=== PATIENT | male | born 1990 | race Caucasian/White ===

== ENCOUNTER 2024-10-04 11:09 | Inpatient (IN) | payer OTHER, SELFPAY ==
[~2024-10-04 11:09] MED LIST: Iopamidol 300 61% 100 ML VIAL FS ONE
[2024-10-04] MEDS ORDERED: Ondansetron PF 4 MG/2 ML Vial ONE (12:10)
[2024-10-04 12:18] LABS: #Basophils Less than 0.03 10x3/uL (0.0-0.2); #Eosinophils Less than 0.03 10x3/uL (0.0-0.5); #Monocytes 0.90 10x3/uL (0.0-1.1); #Neutrophils 9.88 10x3/uL (1.5-8.4); %Basophils 0.1 % (0.0-2.0); %Eosinophils 0.0 % (0.0-6.0); %Lymphocytes 4.2 % (18.0-47.0); %Monocytes 8.0 % (0.0-10.0); %Neutrophils 87.3 % (40.0-75.0); Hematocrit 43.8 % (38.8-50.0); Hemoglobin 15.0 g/dL (13.5-17.5); Mean Corpuscular Hemoglobin 27.1 pg (27.0-33.0); Mean Corpuscular Volume 79.2 fL (81.2-95.1); Platelet Count 187 10x3/uL (150-450); Red Blood Cell (RBC) Count 5.53 10x6/uL (4.32-5.72); White Blood Cell (WBC) Count 11.32 10x3/uL (3.5-10.5)
[2024-10-04 12:32] LABS: ALT (SGPT) 47 U/L (Less than 45); AST (SGOT) 56 U/L (11-34); Albumin 4.7 g/dL (3.1-4.5); Alkaline Phosphatase 73 U/L (40-110); Anion Gap 17 mmol/L (10-20); BUN (Urea Nitrogen) 10 mg/dL (8.9-20.6); Bilirubin, Total 0.9 mg/dL (0.3-1.2); Calc. Creatinine Clearance 0 mL/min (70-130); Calcium 9.7 mg/dL (7.8-10.44); Carbon Dioxide 21 mmol/L (22-29); Chloride 96 mmol/L (98-107); Globulin 3.8 g/dL (2.4-3.5); Glucose 121 mg/dL (70-105); Lipase 14 U/L (8-78); Magnesium 1.6 mg/dL (1.6-2.6); Potassium 3.3 mmol/L (3.5-5.1); Sodium 131 mmol/L (136-145)
[2024-10-04] MEDS ORDERED: Ketorolac Tromethamine 30 MG (1 mL) VIAL ONE (13:07)
[2024-10-04] MEDS ORDERED: Acetaminophen 500 MG TAB ONE (15:27)
[2024-10-04 17:22] LABS: Glucose, Urine (Dipstick) Normal (Negative); Leukocyte Negative (Negative); Protein, Urine (Dipstick) 30 mg/dl (Neg-Trace); Specific Gravity, Urine 1.010 (1.005-1.030)
[2024-10-04 17:53] LABS: CAUTI Indications for Culture Fever or rigors; RBC/HPF 0-3 HPF (0-3); WBC/HPF 0-3 HPF (0-3)
[2024-10-04 17:54] LABS: Bacteria/HPF 1+ HPF (None Seen)
[2024-10-04 17:55] LABS: Urine Culture Reflex No No
[2024-10-04] MEDS ORDERED: Ondansetron PF 4 MG/2 ML Vial IVP PRN (18:05)
[2024-10-04] MEDS ORDERED: Electrolyte Replacement Protocol 1 EACH FS SCH (18:15)
[2024-10-04] MEDS: NS 0.9% w/ 20 MEQ KCL 1,000 ML IV SCH (19:17)
[2024-10-04] MEDS ORDERED: Ventolin HFA Inhaler 60 PUFF INHALER INH PRN (19:30)
[2024-10-04] MEDS: Magnesium 2 GM/50 ML(in water) 2 GM in Premix 1 BAG IVPB SCH (20:01)
[2024-10-04 21:32] VITALS: BMI 39.2
[2024-10-05 04:17] LABS: Campy jejuni + coli by PCR Negative (Negative); STEC Shiga Toxin 1+2 Negative (Negative); Salmonella spp. by PCR Negative (Negative); Shigella spp + EIEC by PCR Negative (Negative)
[2024-10-05 06:20] LABS: #Basophils 0.03 10x3/uL (0.0-0.2); #Eosinophils 0.09 10x3/uL (0.0-0.5); #Monocytes 1.31 10x3/uL (0.0-1.1); #Neutrophils 5.56 10x3/uL (1.5-8.4); %Basophils 0.4 % (0.0-2.0); %Eosinophils 1.2 % (0.0-6.0); %Lymphocytes 9.5 % (18.0-47.0); %Monocytes 16.9 % (0.0-10.0); %Neutrophils 71.7 % (40.0-75.0); Hematocrit 34.9 % (38.8-50.0); Hemoglobin 12.1 g/dL (13.5-17.5); Mean Corpuscular Hemoglobin 28.1 pg (27.0-33.0); Mean Corpuscular Volume 81.2 fL (81.2-95.1); Platelet Count 151 10x3/uL (150-450); Red Blood Cell (RBC) Count 4.30 10x6/uL (4.32-5.72); White Blood Cell (WBC) Count 7.75 10x3/uL (3.5-10.5)
[2024-10-05 06:50] LABS: ALT (SGPT) 288 U/L (Less than 45); AST (SGOT) 229 U/L (11-34); Albumin 3.5 g/dL (3.1-4.5); Alkaline Phosphatase 62 U/L (40-110); Anion Gap 17 mmol/L (10-20); BUN (Urea Nitrogen) 8 mg/dL (8.9-20.6); Bilirubin, Total 1.9 mg/dL (0.3-1.2); Calc. Creatinine Clearance 169 mL/min (70-130); Calcium 8.6 mg/dL (7.8-10.44); Carbon Dioxide 23 mmol/L (22-29); Chloride 101 mmol/L (98-107); Globulin 3.1 g/dL (2.4-3.5); Glucose 100 mg/dL (70-105); Magnesium 2.3 mg/dL (1.6-2.6); Potassium 4.2 mmol/L (3.5-5.1); Sodium 137 mmol/L (136-145)
[2024-10-05] MEDS: SODIUM CHLORIDE IVPB SCH (10:32)
[2024-10-05] MEDS: Sertraline 25 MG TAB PO SCH (10:32)
[2024-10-05] MEDS: SODIUM PHOSPHATE IVPB SCH (10:32)
[2024-10-05] MEDS: Lisinopril 10 MG TAB PO SCH (10:32)
[2024-10-05] MEDS: ADMIXTURE FEE IVPB SCH (10:32)
[2024-10-05] MEDS: Acetaminophen 325 MG TAB PO PRN (20:27)
[2024-10-06 04:46] LABS: Hematocrit 32.2 % (38.8-50.0); Hemoglobin 10.7 g/dL (13.5-17.5); Mean Corpuscular Hemoglobin 26.8 pg (27.0-33.0); Mean Corpuscular Volume 80.5 fL (81.2-95.1); Platelet Count 152 10x3/uL (150-450); Red Blood Cell (RBC) Count 4.00 10x6/uL (4.32-5.72); White Blood Cell (WBC) Count 5.44 10x3/uL (3.5-10.5)
[2024-10-06 05:02] LABS: ALT (SGPT) 223 U/L (Less than 45); AST (SGOT) 113 U/L (11-34); Albumin 3.3 g/dL (3.1-4.5); Alkaline Phosphatase 59 U/L (40-110); Anion Gap 14 mmol/L (10-20); BUN (Urea Nitrogen) 10 mg/dL (8.9-20.6); Bilirubin, Total 0.7 mg/dL (0.3-1.2); CK (CPK) 790 U/L (30-200); Calc. Creatinine Clearance 222 mL/min (70-130); Calcium 8.3 mg/dL (7.8-10.44); Carbon Dioxide 24 mmol/L (22-29); Chloride 105 mmol/L (98-107); Globulin 3.1 g/dL (2.4-3.5); Glucose 96 mg/dL (70-105); Potassium 3.1 mmol/L (3.5-5.1); Sodium 140 mmol/L (136-145)
[2024-10-06 05:25] LABS: HIV (1/2) Antibody/Antigen Non-Reactive (NonReactive); HIV 1/2 INDEX 0.13 S/CO (<1.00)
[2024-10-06 11:05] VITALS: BP 120/76; TEMP 98.6
[2024-10-08 00:09] LABS: HIV-1 Quantitative, RNA PCR <20 copies/mL (.)
[2024-10-10 16:23] LABS: Reference Lab Name LABCORP
== END 2024-10-06 12:47 | disposition home or self-care (01) | DRG 872 ==
LOC: CSHERS 11:09 → CSHTELE 17:16 → OBSVTOIN 10-05 11:51
PROVIDERS: ADMIT Internal Medicine; ATTEND Internal Medicine
DX: A41.9 Sepsis, unspecified organism (principal); E87.1 Hypo-osmolality and hyponatremia; K52.9 Noninfective gastroenteritis and colitis, unspecified; I10 Essential (primary) hypertension; E78.5 Hyperlipidemia, unspecified; F17.210 Nicotine dependence, cigarettes, uncomplicated; E87.6 Hypokalemia; K76.0 Fatty (change of) liver, not elsewhere classified; J45.20 Mild intermittent asthma, uncomplicated; E86.0 Dehydration; Z79.899 Other long term (current) drug therapy
CPT/HCPCS: 36415; 74177; 80053; 81001; 82550; 83605; 83690; 83735; 84100; 85025; 85027; 86403; 87015; 87040; 87206; 87328; 87329; 87389; 87505; 87536; 94760; 94762; 96375; 96376; G0378; J1885; J2270; J2405; J2543; J3475; J3480; J7050; J7120; Q9967